=== PATIENT | female | born 1955 | race Caucasian/White ===

== ENCOUNTER 2024-07-22 15:45 | Inpatient (IN) | payer OTHER ==
[~2024-07-22] VITALS: Ht 167.6 cm; Wt 40.9 kg
[~2024-07-22 15:45] MED LIST: ALA-CORT28.4 GM T; ALL DAY ALLERGY10 MG PO; ASPIRIN CHEWABL81 MG PO; CETIRIZINE10 MG PO; DOXYCYCLINE100 M3 PO; MONTELUKAST SOD10 MG PO; NEURONTIN300 MG PO; OXYGEN NAS; PENICILLIN VK500 MG PO; PREDNISONE10 MG PO; SPIRIVA -- 3018 MCG INH; SYMB160 INH; VENTOLIN 02.5 MG/3 M INH; VITAMIN D32000 UNI1 PO
[2024-07-22 15:54] VITALS: BP 128/77
[2024-07-22] MEDS ORDERED: methylPREDNISolone sod succ 125 MG VIAL IV ONE (16:00)
[2024-07-22] MEDS ORDERED: Albuterol Sulfate 2.5 MG/3 ML VIAL NEB ONE (16:00)
[2024-07-22] MEDS ORDERED: AZITHROMYCIN 250 MG TAB PO ONE (16:00)
[2024-07-22] MEDS ORDERED: SODIUM CHLORIDE 0.9% 1,000 ML IV ONE ×3 (16:00→17:10)
[2024-07-22] MEDS ORDERED: MAGNESIUM SULFATE 50 ML IV ONE (16:00)
[2024-07-22 16:54] LABS: BUN 9 mg/dl (9-23); CHLORIDE 96 mmol/L (98-107); POTASSIUM 3.3 mmol/L (3.4-5.1)
[2024-07-22] MEDS ORDERED: Ceftriaxone Sodium 1 GM/10 ML SYR IV ONE (17:10)
[2024-07-22 17:12] LABS: BASO # 0.1 10*3/uL (0.0-0.1); BASO % 0.5 % (0.0-1.0); EOS # 0.1 10*3/uL (0.0-0.4); EOS % 0.3 % (1.0-4.0); HEMATOCRIT 36.4 % (37.0-47.0); LYMPH # 1.3 10*3/uL (1.3-4.4); LYMPH % 7.1 % (27.0-41.0); MEAN CELL VOLUME 93.8 fl (81.0-99.0); MEAN CORPUSCULAR HGB 28.6 pg (27.0-31.0); MEAN CORPUSCULAR HGB CONC 30.5 g/dl (33.0-37.0); MONO # 1.3 10*3/uL (0.1-1.0); MONO % 7.3 % (3.0-9.0); NEUT # 14.9 10*3/uL (2.3-7.9); NEUT % 84.6 % (47.0-73.0); PLATELET COUNT AUTOMATED 387 10*3/uL (130-400); RED BLOOD COUNT 3.88 10*6/uL (4.10-5.10); RED CELL DISTRI WIDTH 13.3 % (0-14.5); WHITE BLOOD COUNT 17.7 10*3/uL (4.8-10.8)
[2024-07-22] MEDS ORDERED: BISACODYL 10 MG SUPP R PRN (18:05)
[2024-07-22] MEDS ORDERED: ACETAMINOPHEN 650 MG SUPP R PRN (18:05)
[2024-07-22] MEDS ORDERED: ACETAMINOPHEN 325 MG TAB PO PRN (18:05)
[2024-07-22] MEDS ORDERED: Magnesium Hydroxide 30 ML UDC PO PRN (18:05)
[2024-07-22] MEDS ORDERED: Ondansetron Hydrochloride 4 MG/2 ML VIAL IV PRN (18:05)
[2024-07-22] MEDS ORDERED: BISACODYL 5 MG TAB PO PRN (18:05)
[2024-07-22] MEDS ORDERED: Albuterol Sulf/Ipratropium 3 ML VIAL NEB PRN (18:20)
[2024-07-22] MEDS ORDERED: POTASSIUM CHLORIDE 10 MEQ TAB PO ONE (18:20)
[2024-07-22] MEDS ORDERED: ROSUVASTATIN CA10 MG PO (19:59)
[2024-07-22] MEDS ORDERED: TRAMADOL HCL50 MG PO (20:00)
[2024-07-22] MEDS ORDERED: COLACE100 MG PO (20:00)
[2024-07-22] MEDS ORDERED: NITROFURANTOIN100 M3 PO (20:01)
[2024-07-22] MEDS ORDERED: BUPROPION HYDR150 M1 PO (20:02)
[2024-07-22] MEDS ORDERED: LIPITOR10 MG PO (20:04)
[2024-07-22] MEDS ORDERED: VITAMIN D3125 MCG PO (20:05)
[2024-07-22 20:10] VITALS: BP 124/74
[2024-07-22] MEDS ORDERED: methylPREDNISolone sod succ 40 MG VIAL IV SCH (22:00)
[2024-07-22] MEDS ORDERED: HEPARIN SODIUM 5,000 UNIT/ML VIAL SC SCH (22:00)
[2024-07-22] MEDS ORDERED: Dextromethorphan Hydrobromid 1 TAB TAB PO SCH (22:00)
[2024-07-23] VITALS (8 sets, daily range): BP systolic 135–160; BP diastolic 70–91
[2024-07-23] MEDS ORDERED: Levalbuterol Hydrochloride 0.63 MG VIAL NEB ONE (04:50)
[2024-07-23 07:47] LABS: HEMATOCRIT 32.5 % (37.0-47.0); MEAN CELL VOLUME 91.8 fl (81.0-99.0); MEAN CORPUSCULAR HGB 28.8 pg (27.0-31.0); MEAN CORPUSCULAR HGB CONC 31.4 g/dl (33.0-37.0); MEAN PLATELET VOLUME 9.9 fl (9.6-12.3); PLATELET COUNT AUTOMATED 309 10*3/uL (130-400); RED BLOOD COUNT 3.54 10*6/uL (4.10-5.10); RED CELL DISTRI WIDTH 13.4 % (0-14.5); WHITE BLOOD COUNT 6.4 10*3/uL (4.8-10.8)
[2024-07-23 07:52] LABS: MANUAL DIFF REFLEX YES
[2024-07-23 08:12] LABS: ALKALINE PHOSPHATASE 91 U/L (46-116); BUN 8 mg/dl (9-23); CHLORIDE 100 mmol/L (98-107); SGPT/ALT 7 U/L (5-49); TOTAL PROTEIN 6.2 gm/dL (6.0-8.0)
[2024-07-23 08:13] LABS: POTASSIUM 4.4 mmol/L (3.4-5.1)
[2024-07-23 08:30] LABS: PLATELET SUFFICIENCY NORMAL (NORMAL); TOTAL CELLS COUNTED 100 #CELLS
[2024-07-23] MEDS ORDERED: Albuterol Sulf/Ipratropium 3 ML VIAL NEB PRN (09:58)
[2024-07-23] MEDS ORDERED: LORazepam 0.5 MG TAB PO ONE (10:25)
[2024-07-23] MEDS ORDERED: LORazepam 0.5 MG TAB PO PRN (11:20)
[2024-07-23 11:42] LABS: BILIRUBIN Negative (Negative); BLOOD Negative (Negative); CLARITY Clear (Clear); COLOR Yellow (Yellow); GLUCOSE Trace (Negative); KETONE Negative (Negative); LEUKO ESTERASE Negative (Negative); NITRITE Negative (Negative); SPECIFIC GRAVITY 1.015 (1.001-1.030); UROBILINOGEN 0.2 E.U./dl (0.0-1.0)
[2024-07-23 12:03] LABS: EPITHELIAL CELLS 16-20
[2024-07-23 12:04] LABS: BACTERIA TRACE; MUCOUS TRACE
[2024-07-23] MEDS ORDERED: AZITHROMYCIN 250 ML IV SCH (16:00)
[2024-07-23] MEDS ORDERED: Ceftriaxone Sodium 10 ML IV SCH (17:00)
[2024-07-24] VITALS: BP 154/91
[2024-07-24] MEDS ORDERED: VENTOLIN 02.5 MG/3 M INH (00:36)
[2024-07-24] MEDS ORDERED: ASPIRIN ADULT L81 M2 PO (00:38)
[2024-07-24] MEDS ORDERED: HYDROXYZINE HCL25 MG PO (00:38)
[2024-07-24] MEDS ORDERED: BREZTRI AEROS10.7 GM INH (00:38)
[2024-07-24] MEDS ORDERED: DILTIAZEM HCL120 M2 PO (00:39)
[2024-07-24] MEDS ORDERED: GOOD NEIGHBOR L10 MG PO (00:39)
[2024-07-24] MEDS ORDERED: PANTOPRAZOLE SO20 MG PO (00:40)
[2024-07-24 06:20] LABS: HEMATOCRIT 34.9 % (37.0-47.0); MEAN CELL VOLUME 93.3 fl (81.0-99.0); MEAN CORPUSCULAR HGB 28.1 pg (27.0-31.0); MEAN CORPUSCULAR HGB CONC 30.1 g/dl (33.0-37.0); MEAN PLATELET VOLUME 10.3 fl (9.6-12.3); PLATELET COUNT AUTOMATED 333 10*3/uL (130-400); RED BLOOD COUNT 3.74 10*6/uL (4.10-5.10); RED CELL DISTRI WIDTH 13.3 % (0-14.5)
[2024-07-24 06:21] LABS: MANUAL DIFF REFLEX YES
[2024-07-24 06:55] LABS: TOTAL CELLS COUNTED 100 #CELLS
[2024-07-24 06:56] LABS: OVALOCYTES FEW; PLATELET SUFFICIENCY NORMAL (NORMAL); POLYCHROMASIA SLIGHT
[2024-07-24 07:11] LABS: FREE T4 1.11 ng/dl (0.89-1.76)
[2024-07-24 07:13] LABS: VITAMIN D, 25-HYDROXY 71.4 ng/mL (30-100)
[2024-07-24 08:00] VITALS: BP 151/80
[2024-07-24] MEDS ORDERED: GUAIFENESIN 600 MG TAB ER PO SCH (10:00)
[2024-07-24] MEDS ORDERED: FOAM BANDAGE 1 EACH BANDAGE T ONE (14:05)
[2024-07-24] MEDS ORDERED: LEPTOSPERMUM HONEY 0.5 OZ TUBE T ONE (14:05)
[2024-07-24] MEDS ORDERED: HEEL PROTECTOR DEVICE ONE (14:06)
[2024-07-24] MEDS ORDERED: CHAIR CUSHION DEVICE ONE (14:06)
[2024-07-24 16:00] VITALS: BP 150/80
[2024-07-24 20:00] VITALS: BP 146/94
[2024-07-24] MEDS ORDERED: MENTHOL USP 1 LOZ LOZENGE PO PRN (20:40)
[2024-07-24] MEDS ORDERED: ALPRAZolam 0.25 MG TAB PO ONE (22:15)
[2024-07-24] MEDS ORDERED: Levalbuterol Hydrochloride 0.63 MG VIAL NEB ONE (22:15)
[2024-07-24] MEDS ORDERED: DILTIAZEM CD 120 MG CAP PO SCH (22:25)
[2024-07-24 22:35] LABS: HEMATOCRIT 33.3 % (37.0-47.0); MEAN CELL VOLUME 92.5 fl (81.0-99.0); MEAN CORPUSCULAR HGB 28.3 pg (27.0-31.0); MEAN CORPUSCULAR HGB CONC 30.6 g/dl (33.0-37.0); MEAN PLATELET VOLUME 10.5 fl (9.6-12.3); PLATELET COUNT AUTOMATED 236 10*3/uL (130-400); RED CELL DISTRI WIDTH 13.3 % (0-14.5); WHITE BLOOD COUNT 13.1 10*3/uL (4.8-10.8)
[2024-07-24 22:38] LABS: MANUAL DIFF REFLEX YES
[2024-07-24 22:56] LABS: ALKALINE PHOSPHATASE 84 U/L (46-116); BUN 11 mg/dl (9-23); CHLORIDE 98 mmol/L (98-107); POTASSIUM 4.5 mmol/L (3.4-5.1); SGPT/ALT 15 U/L (5-49); TOTAL PROTEIN 6.4 gm/dL (6.0-8.0)
[2024-07-24 23:06] LABS: PLATELET SUFFICIENCY NORMAL (NORMAL); TOTAL CELLS COUNTED 100 #CELLS
[2024-07-25] VITALS (7 sets, daily range): BP systolic 123–149; BP diastolic 65–104
[2024-07-25 06:49] LABS: BASO % 0.1 % (0.0-1.0); HEMATOCRIT 35.9 % (37.0-47.0); LYMPH # 0.8 10*3/uL (1.3-4.4); LYMPH % 5.9 % (27.0-41.0); MEAN CELL VOLUME 93.7 fl (81.0-99.0); MEAN CORPUSCULAR HGB 28.7 pg (27.0-31.0); MEAN CORPUSCULAR HGB CONC 30.6 g/dl (33.0-37.0); MEAN PLATELET VOLUME 10.7 fl (9.6-12.3); MONO # 1.4 10*3/uL (0.1-1.0); MONO % 10.2 % (3.0-9.0); NEUT # 11.3 10*3/uL (2.3-7.9); NEUT % 83.5 % (47.0-73.0); RED BLOOD COUNT 3.83 10*6/uL (4.10-5.10); RED CELL DISTRI WIDTH 13.5 % (0-14.5); WHITE BLOOD COUNT 13.5 10*3/uL (4.8-10.8)
[2024-07-25 06:57] LABS: PLATELET COUNT AUTOMATED 331 10*3/uL (130-400)
[2024-07-25] MEDS ORDERED: Pantoprazole Sodium 20 MG TAB PO SCH (07:30)
[2024-07-25] MEDS ORDERED: ASPIRIN ENTERIC COATED 81 MG TAB PO SCH (10:00)
[2024-07-25] MEDS ORDERED: IOHEXOL 300 MG/ML 100 ML VIAL IV ONE (13:25)
[2024-07-25] MEDS ORDERED: BARIUM SULFATE 2% 450 ML BOT PO SCH (14:00)
[2024-07-25] MEDS ORDERED: Enoxaparin Sodium 100 MG/ML SYR SC SCH (15:45)
[2024-07-25] MEDS ORDERED: Albuterol Sulfate 2.5 MG/3 ML VIAL NEB PRN (15:55)
[2024-07-25] MEDS ORDERED: DILTIAZEM CD 180 MG CAP PO SCH (16:00)
[2024-07-25 16:23] LABS: ABG BASE EXCESS 7.6 mmol/L (-2.0-3.0); ABG O2 SATURATION 93.2 % (94.0-98.0); ARTERIAL BLOOD GAS PH 7.291 (7.350-7.450); ARTERIAL BLOOD GAS PO2 71.9 mmHg (83.0-108.0)
[2024-07-25] MEDS ORDERED: Metoprolol Tartrate 25 MG TAB PO SCH (16:40)
[2024-07-25] MEDS ORDERED: HEPARIN SODIUM 250 ML IV SCH (16:40)
[2024-07-25] MEDS ORDERED: ASPIRIN, CHEWABLE 81 MG TAB PO ONE (16:45)
[2024-07-25] MEDS ORDERED: SODIUM CHLORIDE 0.9% 100 ML BAG IV ONE (16:50)
[2024-07-25] MEDS ORDERED: IOHEXOL 350 MG/ML 100 ML VIAL IV ONE ×2 (16:50→17:06)
[2024-07-25] MEDS ORDERED: SODIUM CHLORIDE 0.9% 100 ML IV ONE (17:06)
[2024-07-25] MEDS ORDERED: ATORVASTATIN CALCIUM 80 MG TAB PO SCH (22:00)
[2024-07-25] MEDS ORDERED: PROPOFOL 50 ML IV SCH (23:10)
[2024-07-25 23:48] LABS: BASO % 0.1 % (0.0-1.0); LYMPH # 0.5 10*3/uL (1.3-4.4); LYMPH % 3.2 % (27.0-41.0); MEAN CORPUSCULAR HGB 28.3 pg (27.0-31.0); MEAN CORPUSCULAR HGB CONC 28.8 g/dl (33.0-37.0); MEAN PLATELET VOLUME 10.9 fl (9.6-12.3); MONO % 6.4 % (3.0-9.0); NEUT # 13.8 10*3/uL (2.3-7.9); PLATELET COUNT AUTOMATED 364 10*3/uL (130-400); RED BLOOD COUNT 4.07 10*6/uL (4.10-5.10); RED CELL DISTRI WIDTH 13.5 % (0-14.5); WHITE BLOOD COUNT 15.4 10*3/uL (4.8-10.8)
[2024-07-26] VITALS: BP 139/86
[2024-07-26 00:15] VITALS: BP 139/86
[2024-07-26 00:16] LABS: BUN 14 mg/dl (9-23); CHLORIDE 94 mmol/L (98-107)
[2024-07-26 00:30] LABS: ABG O2 SATURATION 99.7 % (94.0-98.0)
[2024-07-26 00:33] LABS: ABG BASE EXCESS 4.2 mmol/L (-2.0-3.0); ARTERIAL BLOOD GAS PH 7.22 (7.350-7.450); ARTERIAL BLOOD GAS PO2 407.7 mmHg (83.0-108.0)
[2024-07-26 00:36] LABS: POTASSIUM 5.5 mmol/L (3.4-5.1)
[2024-07-26] MEDS ORDERED: SODIUM BICARBONATE 50 MEQ/50 ML VIAL IV ONE (00:45)
[2024-07-26 00:48] LABS: MEAN CELL VOLUME 98.3 fl (81.0-99.0)
[2024-07-26 02:00] VITALS: BP 113/96
[2024-07-26] MEDS ORDERED: SODIUM CHLORIDE 0.9% 1,000 ML IV ONE (02:35)
[2024-07-26 04:00] VITALS: BP 101/56
[2024-07-26 05:37] LABS: BUN 19 mg/dl (9-23); CHLORIDE 95 mmol/L (98-107)
[2024-07-26 05:50] LABS: POTASSIUM 4.1 mmol/L (3.4-5.1)
[2024-07-26 06:00] VITALS: BP 120/67
[2024-07-26 06:22] LABS: HEMATOCRIT 30.3 % (37.0-47.0); MEAN CORPUSCULAR HGB 28.5 pg (27.0-31.0); MEAN PLATELET VOLUME 11.3 fl (9.6-12.3); PLATELET COUNT AUTOMATED 262 10*3/uL (130-400); RED BLOOD COUNT 3.19 10*6/uL (4.10-5.10); RED CELL DISTRI WIDTH 13.4 % (0-14.5); WHITE BLOOD COUNT 14.7 10*3/uL (4.8-10.8)
[2024-07-26 06:34] LABS: BASO % 0.1 % (0.0-1.0); LYMPH # 0.3 10*3/uL (1.3-4.4); LYMPH % 2.2 % (27.0-41.0); MONO # 1.5 10*3/uL (0.1-1.0); MONO % 10.1 % (3.0-9.0); NEUT # 12.8 10*3/uL (2.3-7.9); NEUT % 87.3 % (47.0-73.0)
[2024-07-26] MEDS ORDERED: Midazolam Hydrochloride 5 MG/5 ML VIAL ONE (08:30)
[2024-07-26] MEDS ORDERED: Pantoprazole Sodium 40 MG VIAL IV SCH (10:00)
[2024-07-26] MEDS ORDERED: Chlorhexidine Gluconate 15 ML MOUTHWASH T SCH (10:00)
[2024-07-26] MEDS ORDERED: Succinylcholine Chloride 200 MG/10 ML SYRINGE IV ONE (13:16)
[2024-07-26] MEDS ORDERED: ETOMIDATE 20 MG/10 ML VIAL IV ONE (13:16)
== END 2024-07-26 08:48 | disposition short-term general hospital (02) | DRG 871 ==
LOC: ED 15:45 → EDHOLD 17:29 → 4E 17:29 → ICCU 07-25 22:45
PROVIDERS: Emergency Medicine; Internal Medicine; Internal Medicine Critical Care Medicine; Student in an Organized Health Care Education/Training Program; ADMIT Internal Medicine; ATTEND Internal Medicine
PROC: 5A1935Z Respiratory Ventilation, Less than 24 Consecutive Hours (ICD-10-PCS; principal; 2024-07-26)
PROC: 0BH17EZ Insertion of Endotracheal Airway into Trachea, Via Natural or Artificial Opening (ICD-10-PCS; 2024-07-26)
DX: A41.9 Sepsis, unspecified organism (principal); E43 Unspecified severe protein-calorie malnutrition; J15.9 Unspecified bacterial pneumonia; I21.3 ST elevation (STEMI) myocardial infarction of unspecified site; J96.21 Acute and chronic respiratory failure with hypoxia; J96.22 Acute and chronic respiratory failure with hypercapnia; J44.1 Chronic obstructive pulmonary disease with (acute) exacerbation; J44.0 Chronic obstructive pulmonary disease with (acute) lower respiratory infection; J98.11 Atelectasis; C78.00 Secondary malignant neoplasm of unspecified lung; Z68.1 Body mass index [BMI] 19.9 or less, adult; M79.7 Fibromyalgia; F17.210 Nicotine dependence, cigarettes, uncomplicated; C80.1 Malignant (primary) neoplasm, unspecified; E78.5 Hyperlipidemia, unspecified; R40.4 Transient alteration of awareness; E87.6 Hypokalemia; L89.152 Pressure ulcer of sacral region, stage 2; Z88.5 Allergy status to narcotic agent; Z88.8 Allergy status to other drugs, medicaments and biological substances; Z79.82 Long term (current) use of aspirin; Z79.899 Other long term (current) drug therapy; Z98.51 Tubal ligation status; Z90.710 Acquired absence of both cervix and uterus; Z90.49 Acquired absence of other specified parts of digestive tract; Z71.6 Tobacco abuse counseling